=== PATIENT | male | born 1950 | race Two or more races ===

== ENCOUNTER 2022-05-23 16:35 | Inpatient (IN) | payer OTHER ==
[~2022-05-23] VITALS: Ht 167.6 cm; Wt 72.5 kg
[2022-05-23] MEDS ORDERED: ASPirin 81 mg TAB PO ONE ×2 (17:00→17:15)
[2022-05-23] MEDS ORDERED: ONDANSETRON HCL 4 MG/2 ML VIAL IV ONE (17:00)
[2022-05-23] MEDS ORDERED: MORPHINE SULFATE 4 MG/ML SYR/VIAL IV ONE (17:00)
[2022-05-23] MEDS ORDERED: HEPARIN 1,000 UNITS/ml 1ML VIAL IV ONE (17:00)
[2022-05-23 17:05] LABS: Basophils # (auto) 0.1 10 ^3/uL (0-0.2); Basophils % (auto) 1.1 % (0.0-2.0); Eosinophils # (auto) 0 10 ^3/uL (0-0.8); Eosinophils % (auto) 0.1 % (0.0-7.0); Hematocrit 40.8 % (41.0-53.0); Lymphocytes % (auto) 15.4 % (10.0-50.0); Mean Corpuscular Hemoglobin 31.1 pg (28.0-32.0); Mean Corpuscular Hgb Conc. 34.3 g/dL (32.0-36.0); Mean Corpuscular Volume 90.8 fL (80.0-100.0); Monocytes # (auto) 0.7 10 ^3/uL (0-1.3); Monocytes % (auto) 5.5 % (0.0-12.0); Neutrophils # (auto) 10.2 10 ^3/uL (1.6-8.6); Neutrophils % (auto) 77.9 % (37.0-80.0); Red Cell Distribution Width 13.3 % (11.8-14.3); White Blood Cell 13.1 10^3/uL (4.4-10.8)
[2022-05-23] MEDS ORDERED: HEPARIN SODIUM (PORCINE) 5000 UNITS/ML 1ML VIAL IV ONE ×2 (17:15→17:30)
[2022-05-23] MEDS ORDERED: TICAGRELOR 90 MG TAB PO ONE (17:15)
[2022-05-23 17:22] LABS: BUN/Creatinine Ratio 14.8; Calcium 8.7 mg/dL (8.5-10.1); Magnesium 2.2 mg/dL (1.6-2.6); Potassium 4.5 mmol/L (3.5-5.1)
[2022-05-23 17:25] LABS: Bilirubin, Total 0.7 mg/dL (0.2-1.0); Total Protein 7.5 g/dL (6.4-8.2)
[2022-05-23 17:39] LABS: INR 0.97 (0.9-1.15); Partial Thromboplastin Time 25.5 sec (24.6-33.4)
[2022-05-23] MEDS ORDERED: IODIXANOL 320MG/ML 100ML BTL IV ONE (18:10)
[2022-05-23] MEDS ORDERED: LIDOCAINE 2%HCL (LOCAL ANESTH.) INJ 10ml MDV ONE ×2 (18:11→18:22)
[2022-05-23] MEDS ORDERED: ATROPINE SULF 1 MG/10ml SYR ONE (18:21)
[2022-05-23] MEDS ORDERED: VERAPAMIL 2.5MG/ML INJ 2ML VIAL IV ONE (18:21)
[2022-05-23] MEDS ORDERED: ANGIOMAX 250 MG VIAL IV ONE (18:21)
[2022-05-23] MEDS ORDERED: SODIUM CHL 0.9% 50 ML ONE (18:22)
[2022-05-23] MEDS ORDERED: MIDAZOLAM HCL 2MG/2ML 2ml VIAL (1mg/ml) ONE (18:22)
[2022-05-23] MEDS ORDERED: fentaNYL CITRATE 100 MCG/2 ML VL ONE (18:23)
[2022-05-23] MEDS ORDERED: EPTIFIBATIDE INJ (2MG/ML) 10ML VIAL IV ONE (18:31)
[2022-05-23] MEDS ORDERED: ASPirin-EC 81 mg tab PO SCH (19:30)
[2022-05-23] MEDS ORDERED: ACETAMINOPHEN 500 MG TAB PO PRN (19:30)
[2022-05-23] MEDS ORDERED: MORPHINE SULFATE INJ 2 MG/ml SYRG IV PRN (19:30)
[2022-05-23] MEDS ORDERED: ZOLPIDEM TARTRATE 5 MG TAB PO PRN (19:30)
[2022-05-23] MEDS ORDERED: HYDROcodone-ACET 5/325MG TAB PO PRN (19:30)
[2022-05-23] MEDS ORDERED: NITROGLYCERIN 0.4 MG SL TAB SL PRN (19:30)
[2022-05-23] MEDS ORDERED: SODIUM CHLORIDE 0.9% 1,000 ML IV ONE (20:15)
[2022-05-23] MEDS: TICAGRELOR 90 MG TAB PO SCH (21:39)
[2022-05-23 22:00] VITALS: BP 94/67
[2022-05-23] MEDS ORDERED: LOSA-69 PO (22:22)
[2022-05-24] MEDS: ONDANSETRON HCL 4 MG/2 ML VIAL IV PRN ×2 (03:44→12:32)
[2022-05-24 05:00] VITALS: BP 117/69
[2022-05-24 05:12] LABS: Basophils # (auto) 0.1 10 ^3/uL (0-0.2); Basophils % (auto) 0.5 % (0.0-2.0); Eosinophils # (auto) 0.1 10 ^3/uL (0-0.8); Eosinophils % (auto) 0.5 % (0.0-7.0); Hematocrit 36.9 % (41.0-53.0); Hemoglobin 12.9 g/dL (13.5-17.5); Lymphocytes # (auto) 1.4 10 ^3/uL (0.4-5.4); Lymphocytes % (auto) 12.5 % (10.0-50.0); Mean Corpuscular Hemoglobin 31.9 pg (28.0-32.0); Mean Corpuscular Hgb Conc. 34.9 g/dL (32.0-36.0); Mean Corpuscular Volume 91.4 fL (80.0-100.0); Monocytes # (auto) 0.8 10 ^3/uL (0-1.3); Monocytes % (auto) 6.8 % (0.0-12.0); Neutrophils # (auto) 8.9 10 ^3/uL (1.6-8.6); Neutrophils % (auto) 79.7 % (37.0-80.0); Red Blood Cells 4.04 10^6/uL (4.5-5.90); Red Cell Distribution Width 13.4 % (11.8-14.3); White Blood Cell 11.2 10^3/uL (4.4-10.8)
[2022-05-24 05:26] LABS: Calcium 8.4 mg/dL (8.5-10.1); Potassium 4.7 mmol/L (3.5-5.1)
[2022-05-24 09:00] VITALS: BP 104/69
[2022-05-24] MEDS: TICAGRELOR 90 MG TAB PO SCH (09:10)
[2022-05-24] MEDS ORDERED: ATORVASTATIN 20 MG TAB PO SCH (10:00)
[2022-05-24] MEDS ORDERED: TICA90TA PO (11:12)
[2022-05-24] MEDS ORDERED: ATOR20TA50 PO (11:12)
[2022-05-24] MEDS ORDERED: ASPI-543 PO (11:12)
[2022-05-24 13:00] VITALS: BP 121/77
[2022-05-24 17:01] VITALS: BP 134/91
== END 2022-05-24 18:25 | disposition home or self-care (01) | DRG 247 ==
LOC: ER 16:35 → TELE 19:23 → TELE-WESTW 20:28
PROVIDERS: ADMIT Specialist; ATTEND Internal Medicine
PROC: 027034Z Dilation of Coronary Artery, One Artery with Drug-eluting Intraluminal Device, Percutaneous Approach (ICD-10-PCS; principal; 2022-05-23)
PROC: 02C03ZZ Extirpation of Matter from Coronary Artery, One Artery, Percutaneous Approach (ICD-10-PCS; 2022-05-23)
PROC: 4A023N7 Measurement of Cardiac Sampling and Pressure, Left Heart, Percutaneous Approach (ICD-10-PCS; 2022-05-23)
PROC: B211YZZ Fluoroscopy of Multiple Coronary Arteries using Other Contrast (ICD-10-PCS; 2022-05-23)
PROC: B215YZZ Fluoroscopy of Left Heart using Other Contrast (ICD-10-PCS; 2022-05-23)
PROC: B240ZZ3 Ultrasonography of Single Coronary Artery, Intravascular (ICD-10-PCS; 2022-05-23)
PROC: 3E073PZ Introduction of Platelet Inhibitor into Coronary Artery, Percutaneous Approach (ICD-10-PCS; 2022-05-23)
PROC: B41FYZZ Fluoroscopy of Right Lower Extremity Arteries using Other Contrast (ICD-10-PCS; 2022-05-23)
DX: I21.19 ST elevation (STEMI) myocardial infarction involving other coronary artery of inferior wall (principal); N17.9 Acute kidney failure, unspecified; N18.30 Chronic kidney disease, stage 3 unspecified; D72.828 Other elevated white blood cell count; E11.22 Type 2 diabetes mellitus with diabetic chronic kidney disease; I12.9 Hypertensive chronic kidney disease with stage 1 through stage 4 chronic kidney disease, or unspecified chronic kidney disease; Z20.822 Contact with and (suspected) exposure to COVID-19; Z79.02 Long term (current) use of antithrombotics/antiplatelets; Z79.899 Other long term (current) drug therapy; Z82.3 Family history of stroke; Z86.16 Personal history of COVID-19; Z91.19 Patient's noncompliance with other medical treatment and regimen; Z95.5 Presence of coronary angioplasty implant and graft
CPT/HCPCS: 36415; 71045; 75710; 80048; 80053; 83735; 84484; 85025; 85610; 85730; 92933; 92978; 93005; 93306; 93458; 96374; 96375; 99152; 99153; C1874; G0378; J2001; J2250; J2405; Q9967

== ENCOUNTER 2022-05-25 09:14 | Inpatient (IN) | payer OTHER ==
[~2022-05-25] VITALS: Ht 182.9 cm; Wt 75.3 kg
[~2022-05-25 09:14] MED LIST: ASPI-543 PO; ATOR20TA50 PO; LOSA-69 PO; TICA90TA PO
[2022-05-25] MEDS ORDERED: SODIUM CHLORIDE 0.9% 1,000 ML IVB ONE (09:30)
[2022-05-25 09:51] LABS: Basophils # (auto) 0.1 10 ^3/uL (0-0.2); Basophils % (auto) 0.7 % (0.0-2.0); Eosinophils # (auto) 0.1 10 ^3/uL (0-0.8); Eosinophils % (auto) 1.4 % (0.0-7.0); Hematocrit 38.1 % (41.0-53.0); Hemoglobin 13.1 g/dL (13.5-17.5); Lymphocytes # (auto) 2.1 10 ^3/uL (0.4-5.4); Lymphocytes % (auto) 21.1 % (10.0-50.0); Mean Corpuscular Hemoglobin 31.5 pg (28.0-32.0); Mean Corpuscular Hgb Conc. 34.5 g/dL (32.0-36.0); Mean Corpuscular Volume 91.3 fL (80.0-100.0); Monocytes # (auto) 0.7 10 ^3/uL (0-1.3); Monocytes % (auto) 7.1 % (0.0-12.0); Neutrophils # (auto) 7.1 10 ^3/uL (1.6-8.6); Neutrophils % (auto) 69.7 % (37.0-80.0); Red Blood Cells 4.17 10^6/uL (4.5-5.90); Red Cell Distribution Width 13.4 % (11.8-14.3); White Blood Cell 10.2 10^3/uL (4.4-10.8)
[2022-05-25 10:00] LABS: Albumin 3.6 g/dL (3.4-5.0); Calcium 8.7 mg/dL (8.5-10.1); Potassium 3.7 mmol/L (3.5-5.1)
[2022-05-25 10:03] LABS: BUN/Creatinine Ratio 14.2; Bilirubin, Total 1.2 mg/dL (0.2-1.0); Total Protein 7.4 g/dL (6.4-8.2)
[2022-05-25] MEDS ORDERED: TICAGRELOR 90 MG TAB PO ONE (11:30)
[2022-05-25] MEDS ORDERED: hydrALAZINE HCL 20 MG/ML VL IV PRN (12:15)
[2022-05-25] MEDS ORDERED: ACETAMINOPHEN 325 MG TAB PO PRN (12:15)
[2022-05-25] MEDS ORDERED: DOCUSATE SOD 100 MG CAP PO PRN (12:15)
[2022-05-25] MEDS ORDERED: HYDROcodone-ACET 5/325MG TAB PO PRN (12:15)
[2022-05-25] MEDS ORDERED: ADENOSINE 6 MG/2 ML INJ IV ONE (19:29)
[2022-05-25] MEDS ORDERED: AMIODARONE HCL (50 MG/ ML) 3 ML VIAL IV ONE (19:29)
[2022-05-25] MEDS ORDERED: MORPHINE SULFATE INJ 2 MG/ml SYRG IV PRN (19:30)
[2022-05-25] MEDS ORDERED: NITROGLYCERIN 0.4 MG SL TAB SL PRN (19:30)
[2022-05-25] MEDS: THROAT LOZENGES(CEPASTAT) MT PRN ×2 (20:15→23:03)
[2022-05-25] MEDS ORDERED: ATORVASTATIN 20 MG TAB PO SCH (22:00)
[2022-05-25] MEDS: TICAGRELOR 90 MG TAB PO SCH (23:02)
[2022-05-25] MEDS: METOPROLOL TARTRATE 25 MG TAB PO SCH (23:02)
[2022-05-26 01:30] VITALS: BP 123/72
[2022-05-26] MEDS: THROAT LOZENGES(CEPASTAT) MT PRN ×3 (02:12→17:54)
[2022-05-26 05:00] VITALS: BP 107/72
[2022-05-26 07:17] LABS: Basophils # (auto) 0.1 10 ^3/uL (0-0.2); Basophils % (auto) 0.5 % (0.0-2.0); Eosinophils # (auto) 0.1 10 ^3/uL (0-0.8); Hematocrit 34.3 % (41.0-53.0); Hemoglobin 12.3 g/dL (13.5-17.5); Lymphocytes # (auto) 1.5 10 ^3/uL (0.4-5.4); Lymphocytes % (auto) 13.1 % (10.0-50.0); Mean Corpuscular Hemoglobin 32.2 pg (28.0-32.0); Mean Corpuscular Hgb Conc. 35.8 g/dL (32.0-36.0); Mean Corpuscular Volume 90.1 fL (80.0-100.0); Monocytes # (auto) 0.8 10 ^3/uL (0-1.3); Monocytes % (auto) 7.4 % (0.0-12.0); Neutrophils # (auto) 8.9 10 ^3/uL (1.6-8.6); Nucleated Red Blood Cells % 0.1 %; Red Cell Distribution Width 13.2 % (11.8-14.3); White Blood Cell 11.4 10^3/uL (4.4-10.8)
[2022-05-26 07:30] LABS: Calcium 8.4 mg/dL (8.5-10.1)
[2022-05-26 07:33] LABS: BUN/Creatinine Ratio 17.1
[2022-05-26 09:00] VITALS: BP 123/83
[2022-05-26] MEDS: ASPirin 81 mg TAB PO SCH (12:27)
[2022-05-26] MEDS: TICAGRELOR 90 MG TAB PO SCH ×2 (12:27→22:11)
[2022-05-26] MEDS: METOPROLOL TARTRATE 25 MG TAB PO SCH ×2 (12:28→22:00)
[2022-05-26] MEDS: LOSARTAN POTASSIUM 25 MG TAB PO SCH (12:28)
[2022-05-26] MEDS: ENOXAPARIN SOD 40 MG/0.4 ML SYRINGE SC SCH (12:29)
[2022-05-26 13:00] VITALS: BP 115/80
[2022-05-26] MEDS: ONDANSETRON HCL 4 MG/2 ML VIAL IV PRN ×2 (14:10→21:07)
[2022-05-26 17:00] VITALS: BP 125/79
[2022-05-26] MEDS ORDERED: AMIODARONE 450mg/250ml AE 250 ML IV ONE (19:13)
[2022-05-26] MEDS ORDERED: AMIODARONE HCL (50 MG/ ML) 3 ML VIAL IV ONE (19:13)
[2022-05-26] MEDS ORDERED: AMIODARONE HCL 200 MG TAB PO SCH (22:00)
[2022-05-26 22:25] VITALS: BP 93/63
[2022-05-27] MEDS ORDERED: AMIODARONE 450mg/250ml AE 250 ML IV SCH (02:00)
[2022-05-27 03:20] VITALS: BP 104/66
[2022-05-27] MEDS: ONDANSETRON HCL 4 MG/2 ML VIAL IV PRN ×2 (03:28→13:00)
[2022-05-27 05:11] VITALS: BP 124/83
[2022-05-27 06:38] LABS: Basophils # (auto) 0.1 10 ^3/uL (0-0.2); Basophils % (auto) 0.6 % (0.0-2.0); Eosinophils # (auto) 0.1 10 ^3/uL (0-0.8); Eosinophils % (auto) 0.6 % (0.0-7.0); Hematocrit 33.7 % (41.0-53.0); Hemoglobin 11.9 g/dL (13.5-17.5); Lymphocytes % (auto) 9.7 % (10.0-50.0); Mean Corpuscular Hemoglobin 31.8 pg (28.0-32.0); Mean Corpuscular Hgb Conc. 35.1 g/dL (32.0-36.0); Mean Corpuscular Volume 90.5 fL (80.0-100.0); Monocytes # (auto) 0.8 10 ^3/uL (0-1.3); Monocytes % (auto) 7.9 % (0.0-12.0); Neutrophils # (auto) 8.4 10 ^3/uL (1.6-8.6); Neutrophils % (auto) 81.2 % (37.0-80.0); Nucleated Red Blood Cells % 0.1 %; Red Blood Cells 3.73 10^6/uL (4.5-5.90); Red Cell Distribution Width 12.8 % (11.8-14.3); White Blood Cell 10.3 10^3/uL (4.4-10.8)
[2022-05-27 06:55] LABS: Calcium 8.6 mg/dL (8.5-10.1); Potassium 3.8 mmol/L (3.5-5.1)
[2022-05-27 06:59] LABS: BUN/Creatinine Ratio 18.2; Bilirubin, Total 1.4 mg/dL (0.2-1.0); Total Protein 6.7 g/dL (6.4-8.2)
[2022-05-27 09:00] VITALS: BP 106/64
[2022-05-27] MEDS: cefTRIAXone 1GM/50ML D5W 50 ML IV SCH (12:36)
[2022-05-27] MEDS: ASPirin 81 mg TAB PO SCH (12:36)
[2022-05-27] MEDS: TICAGRELOR 90 MG TAB PO SCH ×2 (12:37→23:07)
[2022-05-27] MEDS: AMIODARONE HCL 200 MG TAB PO SCH ×2 (12:37→23:07)
[2022-05-27] MEDS: LOSARTAN POTASSIUM 25 MG TAB PO SCH (12:38)
[2022-05-27] MEDS: METOPROLOL TARTRATE 25 MG TAB PO SCH ×2 (12:38→23:07)
[2022-05-27] MEDS: ENOXAPARIN SOD 40 MG/0.4 ML SYRINGE SC SCH (12:39)
[2022-05-27 13:00] VITALS: BP 95/60
[2022-05-27 17:00] VITALS: BP 114/74
[2022-05-27 23:01] VITALS: BP 104/70
[2022-05-28 05:05] VITALS: BP 115/70
[2022-05-28 06:09] LABS: Albumin 2.9 g/dL (3.4-5.0); Calcium 8.5 mg/dL (8.5-10.1); Potassium 4.1 mmol/L (3.5-5.1)
[2022-05-28 06:11] LABS: BUN/Creatinine Ratio 19.5
[2022-05-28 06:14] LABS: Bilirubin, Total 1.1 mg/dL (0.2-1.0); Total Protein 6.4 g/dL (6.4-8.2)
[2022-05-28 09:00] VITALS: BP 104/67
[2022-05-28] MEDS ORDERED: METO-6 PO ×2 (11:26→12:53)
[2022-05-28] MEDS ORDERED: AMIO200T4 PO ×2 (11:26→12:53)
[2022-05-28 13:00] VITALS: BP 96/67
[2022-05-28] MEDS: ASPirin 81 mg TAB PO SCH (13:10)
[2022-05-28] MEDS: cefTRIAXone 1GM/50ML D5W 50 ML IV SCH (13:10)
[2022-05-28] MEDS: TICAGRELOR 90 MG TAB PO SCH (13:11)
[2022-05-28] MEDS: AMIODARONE HCL 200 MG TAB PO SCH (13:11)
[2022-05-28] MEDS: ENOXAPARIN SOD 40 MG/0.4 ML SYRINGE SC SCH (13:19)
[2022-05-28] MEDS: METOPROLOL TARTRATE 25 MG TAB PO SCH (13:19)
[2022-05-28] MEDS: LOSARTAN POTASSIUM 25 MG TAB PO SCH (13:19)
[2022-05-28 16:46] VITALS: BP 96/67
== END 2022-05-28 17:15 | disposition home or self-care (01) | DRG 281 ==
LOC: EDBD 09:14 → ER 09:14 → TELE 19:28 → TELE-WESTW 22:55 → TELE 23:23 → TELE-EAST 05-26 01:06 → OBSVTOIN 05-27 09:26
PROVIDERS: ADMIT Internal Medicine; ATTEND Internal Medicine
DX: I47.1 Supraventricular tachycardia (principal); I21.3 ST elevation (STEMI) myocardial infarction of unspecified site; I50.20 Unspecified systolic (congestive) heart failure; Z53.29 Procedure and treatment not carried out because of patient's decision for other reasons; R42 Dizziness and giddiness; I25.10 Atherosclerotic heart disease of native coronary artery without angina pectoris; I11.0 Hypertensive heart disease with heart failure; Z20.822 Contact with and (suspected) exposure to COVID-19; Z79.82 Long term (current) use of aspirin; Z79.899 Other long term (current) drug therapy; Z82.3 Family history of stroke; Z91.19 Patient's noncompliance with other medical treatment and regimen; Z95.5 Presence of coronary angioplasty implant and graft; I25.2 Old myocardial infarction; Z79.02 Long term (current) use of antithrombotics/antiplatelets
CPT/HCPCS: 36415; 70450; 71045; 71250; 80048; 80053; 82962; 83735; 84484; 85025; 87040; 93005; 96360; 96361; G0378; J0153; J0696; J2405